=== PATIENT | female | born 1955 | race Caucasian/White ===

== ENCOUNTER → 2016-11-21 | Outpatient (REF) | payer OTHER ==
[2016-11-21 12:37] LABS: THYROXINE (T4) 9.9 UG/DL (4.5-12.0)
== END ==
LOC: M SFHCCLAY 08:00
PROVIDERS: ATTEND Family Medicine
DX: E03.9 Hypothyroidism, unspecified (principal)

== ENCOUNTER → 2017-05-26 | Outpatient (REF) | payer OTHER ==
[2017-05-26 13:59] LABS: THYROXINE (T4) 9.6 UG/DL (4.5-12.0)
== END ==
LOC: M SFHCCLAY 08:00
PROVIDERS: ATTEND Family Medicine
DX: E03.9 Hypothyroidism, unspecified (principal)